=== PATIENT | male | born 1935 | race Caucasian/White ===

== ENCOUNTER 2019-06-14 11:09 | Inpatient (IN) | payer MEDICARE, OTHER ==
[~2019-06-14] VITALS: Ht 172.7 cm; Wt 96.8 kg
[2019-06-14] MEDS ORDERED: COZAAR50 MG PO (11:25)
[2019-06-14] MEDS ORDERED: NORVASC5 MG PO (11:25)
[2019-06-14] MEDS ORDERED: PAXIL10 MG PO (11:26)
[2019-06-14] MEDS ORDERED: FLOMAX0.4 MG PO (11:26)
[2019-06-14] MEDS ORDERED: LASIX20 MG PO (11:28)
[2019-06-14] MEDS ORDERED: POTASSIUM CHLO10 ME1 PO (11:29)
[2019-06-14] MEDS ORDERED: PACERONE100 MG PO (11:29)
[2019-06-14] MEDS ORDERED: TERAZOSIN HCL2 MG PO (11:31)
[2019-06-14] MEDS ORDERED: GLUCOTROL ER2.5 MG PO (11:32)
[2019-06-14] MEDS ORDERED: PROSCAR5 MG PO (11:32)
[2019-06-14] MEDS ORDERED: LISINOPRIL5 MG PO (11:32)
[2019-06-14 11:40] LABS: BASOPHILS 0.3 % (0-2); EOSINOPHILS 3.6 % (0-7); HEMOGLOBIN 11.1 g/dL (13.5-17.5); IMMATURE GRANULOCYTES 0.5 % (0-5); LYMPHOCYTES 19.3 % (15-50); MCH 30.8 pg (26.0-34.0); MCHC 33.6 g/dL (31.0-37.0); MCV 91.7 fL (80.0-100.0); MEAN PLATELET VOLUME 9.5 fL (7.4-10.4); MONOCYTES 7.2 % (2-11); NEUTROPHILS 69.1 % (40-80); PLATELET COUNT 167 10x3/uL (130-400); RDW 14.2 % (11.5-14.5); WBC 7.7 10x3/uL (4.8-10.8)
[2019-06-14 11:42] VITALS: BP 119/49
--- NOTE | 2019-06-14 11:43 | NUR ---
PT STATES "MY FEET ARE CRAMPING"
[2019-06-14 11:50] LABS: CALC OSMOLALITY 283 mosm/kg (275-300); CALCIUM 9.1 mg/dL (8.5-10.1); CARBON DIOXIDE 27.2 mmol/L (21.0-32.0); CHLORIDE - SERUM 105 mmol/L (98-107); CREATININE - SERUM 1.1 mg/dL (0.6-1.3); GLUCOSE 130 mg/dL (74-106); SODIUM 139 mmol/L (136-145); UREA NITROGEN 24 mg/dL (7-18); eGFR NON AFRICAN AMERICAN 68 mL/min (90-120)
[2019-06-14 12:08] LABS: ALBUMIN 3.4 g/dL (3.4-5.0); ALKALINE PHOSPHATASE 73 U/L (30-120); ALT (SGPT) 21 U/L (10-68); BILIRUBIN - TOTAL 0.49 mg/dL (0.2-1.3); CKMB 1.4 U/L (0.0-3.6); CREATINE KINASE 71 UL (21-232); PROTEIN - SERUM 6.8 g/dL (6.4-8.2); TROPONIN-I < 0.017 ng/mL (0.000-0.060)
[2019-06-14 12:59] VITALS: BP 112/47
--- NOTE | 2019-06-14 13:34 | NUR ---
PT TO CT
--- NOTE | 2019-06-14 13:50 | NUR ---
NS 0.9% 1000 ML INFUSING UPON TRANSFER @ 100 ML/H
--- NOTE | 2019-06-14 15:40 | NUR ---
RECEIVED PT TO ROOM 2113 VIA W/C AAOX4 RESP UNLabored SKIN W/D TELEMETRY APPLIED SR RATE 65 IV OF NS PATENT TO LAC VIA PUMP AT 100ML/HR SITE FREE OF REDNESS OR EDEMA WILL CONTINUE TO MONITOR AT BEDSIDE
[2019-06-14 17:41] VITALS: BP 126/65; BMI 30.1
[2019-06-14 18:22] LABS: BILIRUBIN NEGATIVE (NEGATIVE); GLUCOSE NEGATIVE (NEGATIVE); KETONE NEGATIVE (NEGATIVE); NITRITE NEGATIVE (NEGATIVE); UROBILINOGEN NORMAL (NORMAL)
[2019-06-14 20:00] VITALS: BP 114/55
[2019-06-15] VITALS: BP 132/52
[2019-06-15 04:00] VITALS: BP 127/49
[2019-06-15 05:58] LABS: BASOPHILS 0.1 % (0-2); HEMATOCRIT 32.3 % (42.0-54.0); HEMOGLOBIN 10.5 g/dL (13.5-17.5); IMMATURE GRANULOCYTES 0.4 % (0-5); LYMPHOCYTES 20.5 % (15-50); MCH 30.2 pg (26.0-34.0); MCHC 32.5 g/dL (31.0-37.0); MCV 92.8 fL (80.0-100.0); MEAN PLATELET VOLUME 9.9 fL (7.4-10.4); MONOCYTES 8.2 % (2-11); NEUTROPHILS 66.8 % (40-80); PLATELET COUNT 189 10x3/uL (130-400); RBC 3.48 10x6/uL (4.20-6.10); RDW 14.5 % (11.5-14.5)
[2019-06-15 06:13] LABS: ANION GAP 10.2 mmol/L (8-16); CALCIUM 8.9 mg/dL (8.5-10.1); CARBON DIOXIDE 27.2 mmol/L (21.0-32.0); CREATININE - SERUM 1.2 mg/dL (0.6-1.3); POTASSIUM - SERUM 4.4 mmol/L (3.5-5.1)
[2019-06-15 08:52] VITALS: BP 127/50
--- NOTE | 2019-06-15 10:11 | NUR ---
RECEIVED PT IN BED AAOX4 RESP UNLABORED SKIN W/D COLOR WNL DENIES ANY PAIN OR DISCOMFORT AT THIS TIME WILL CONT TO MONITOR
[2019-06-15 12:46] VITALS: BP 133/50
--- NOTE | 2019-06-15 14:12 | NUR ---
PT REFUSED SCDs
[2019-06-15 17:42] VITALS: BP 124/47
[2019-06-15 20:44] VITALS: BP 137/49
[2019-06-16 01:16] VITALS: BP 117/47
[2019-06-16 05:11] LABS: BASOPHILS 0.3 % (0-2); EOSINOPHILS 5.5 % (0-7); HEMOGLOBIN 11.7 g/dL (13.5-17.5); IMMATURE GRANULOCYTES 0.3 % (0-5); LYMPHOCYTES 25.9 % (15-50); MCH 30.6 pg (26.0-34.0); MCHC 32.5 g/dL (31.0-37.0); MCV 94.2 fL (80.0-100.0); MEAN PLATELET VOLUME 9.7 fL (7.4-10.4); MONOCYTES 8.8 % (2-11); NEUTROPHILS 59.2 % (40-80); PLATELET COUNT 197 10x3/uL (130-400); RBC 3.82 10x6/uL (4.20-6.10); RDW 14.7 % (11.5-14.5); WBC 9.4 10x3/uL (4.8-10.8)
[2019-06-16 05:35] LABS: ANION GAP 13.9 mmol/L (8-16); CALCIUM 9.4 mg/dL (8.5-10.1); CARBON DIOXIDE 27.8 mmol/L (21.0-32.0); CREATININE - SERUM 1.1 mg/dL (0.6-1.3)
[2019-06-16 05:40] LABS: POTASSIUM - SERUM 3.7 mmol/L (3.5-5.1)
[2019-06-16 05:45] VITALS: BP 147/45
--- NOTE | 2019-06-16 13:12 | NUR ---
IV AND TELEMETRY DCD. DC PLANS GIVEN. UNDERSTANDING VOICED. ESCORTED TO CAR BY W/C.
[2019-06-16 13:16] VITALS: Ht 172.7 cm; Wt 96.8 kg
== END 2019-06-16 13:13 | disposition home or self-care (01) | DRG 68 ==
LOC: D.ER 11:09 → D.M2 12:34 → OBSVTIME 12:51 → D.M2 06-15 14:59
PROVIDERS: Emergency Medicine; ADMIT Family Medicine; ATTEND Family Medicine
DX: I65.21 Occlusion and stenosis of right carotid artery (principal); I71.4 Abdominal aortic aneurysm, without rupture; R00.1 Bradycardia, unspecified; E11.9 Type 2 diabetes mellitus without complications; I10 Essential (primary) hypertension

== ENCOUNTER → 2019-06-25 10:28 | Outpatient (CLI) | payer MEDICARE, OTHER ==
[2019-06-16 13:16] VITALS: BMI 30.1
[~2019-06-25 10:28] MED LIST: COZAAR50 MG PO; FLOMAX0.4 MG PO; GLUCOTROL ER2.5 MG PO; LASIX20 MG PO; LISINOPRIL5 MG PO; NORVASC5 MG PO; PACERONE100 MG PO; PAXIL10 MG PO; POTASSIUM CHLO10 ME1 PO; PROSCAR5 MG PO; TERAZOSIN HCL2 MG PO
== END | disposition home or self-care (01) ==
LOC: D.CT 10:28
PROVIDERS: ATTEND Internal Medicine Cardiovascular Disease
DX: I65.23 Occlusion and stenosis of bilateral carotid arteries (principal)

== ENCOUNTER 2019-07-27 07:41 | Observation (INO) | payer MEDICARE, OTHER ==
[2019-07-25 15:36] LABS: HEMATOCRIT 36.4 % (42.0-54.0); HEMOGLOBIN 11.9 g/dL (13.5-17.5); MCH 30.7 pg (26.0-34.0); MCHC 32.7 g/dL (31.0-37.0); MCV 93.8 fL (80.0-100.0); MEAN PLATELET VOLUME 9.5 fL (7.4-10.4); RBC 3.88 10x6/uL (4.20-6.10); WBC 6.3 10x3/uL (4.8-10.8)
[2019-07-25 15:52] LABS: APTT 26.2 SECONDS (22.8-39.4); INR 1.03 (0.85-1.17); PROTIME 13.4 SECONDS (11.6-15.0)
[2019-07-25 15:53] LABS: ANION GAP 12.3 mmol/L (8-16); CALCIUM 8.7 mg/dL (8.5-10.1); CARBON DIOXIDE 28.4 mmol/L (21.0-32.0); CREATININE - SERUM 1.1 mg/dL (0.6-1.3); POTASSIUM - SERUM 3.7 mmol/L (3.5-5.1)
[~2019-07-27] VITALS: Ht 172.7 cm; Wt 83.6 kg
[2019-07-27] VITALS (16 sets, daily range): BP systolic 100–134; BP diastolic 42–85; Ht 172.7 cm; Wt 83.6 kg
--- NOTE | ~2019-07-27 | OP ---
PATIENT NAME: SPIKE KAYE MEDICAL RECORD: [id number] :37 [facility]: SURGEON: BENTLEY ANGULO MD DATE OF OPERATION: 07/27/2019 SURGEON: Bentley Angulo MD ANESTHESIA: General, Dr. Phillips. OPERATION PERFORMED: Insertion of dual chamber pacing system. PREOPERATIVE DIAGNOSIS: Sick sinus syndrome. POSTOPERATIVE DIAGNOSIS: Sick sinus syndrome. INDICATION FOR OPERATION: Syncope, profound bradycardia, and sick sinus syndrome. FINDINGS OF THE OPERATION: The pulse generator Medtronic model #W1DR01, serial number [id number]. ATRIAL LEAD: Medtronic model number 4574-45, serial number [id number]. Ventricular lead Medtronic model number 4074-52, serial number [id number]. LEAD ANALYSIS: Atrial lead threshold 0.5 volts, current lead threshold 0.9 milliamps, resistance 625 ohms. P-wave 1.9, slew rate 1.2. Ventricular lead threshold 0.2 volts, current threshold 0.2 milliamps, resistance 1140, R-wave 4.9, slew rate 4.9. ESTIMATED BLOOD LOSS: Less than 5 cc. DESCRIPTION OF PROCEDURE: After informed consent, adequate preoperative medication evaluation, the patient was brought to the operating room, placed on table in supine position. After induction of general endotracheal anesthesia and application of appropriate monitoring devices, left chest and neck were prepped and draped in a sterile field, utilizing Betadine scrub, alcohol, and Betadine solution. A Betadine-impregnated drape was also used, 1% lidocaine was infiltrated in the left subclavicular space. Incision was made. Dissection carried down the fascia. Hemostasis maintained with electrocautery. A pacemaker pocket was formed. Subclavian vein was cannulated with the introducers, leads placed in the heart. The above electrophysiologic study was done. Leads were then secured. Leads were connected to pulse generator and pacemaker placed in the pocket. Pacemaker fired, captured and sensed appropriately. Pocket was irrigated. Instrument count and sponge count were correct times 2. Pocket was closed in layers utilizing 3-0 Vicryl on deep subcutaneous tissue, 3-0 Vicryl on superficial subcutaneous tissue, and skin approximated with 5-0 subcuticular Monocryl. Sterile dressings were applied. The patient tolerated the procedure well and was transferred to the CV ICU in satisfactory condition. TRANSINT:[id number] Voice Confirmation ID: [id number] DOCUMENT ID: [id number] OPERATIVE REPORT [id number] SPIKE KAYE EDWARD MD CC: [id number] DICTATION DATE: 07/27/19 132 COOK MESS: 07/27/19 211 [facility] [address] [place] [address]
[~2019-07-27 07:41] MED LIST changes: +BAYER CHEWABLE81 MG PO; +DONEPEZIL HCL5 MG PO
[2019-07-27] MEDS ORDERED: GLUCOSAMINE HC500 MG PO (08:16)
--- NOTE | 2019-07-27 13:43 | NUR ---
1325: TO CV 02 VIA BED FROM OR. CONNECTED TO MONITOR AND VS AND ASSESSMENT COMPLETE.
--- NOTE | 2019-07-27 14:41 | NUR ---
1350-SPOKE WITH PT AND REGARDING L ARM SLING AND MOVEMENT RESTRICTIONS REQUIRED TO PROTECT PACEMAKER PLACEMENT 1430-BELONGINGS BROUGHT TO BEDSIDE
--- NOTE | 2019-07-27 15:55 | NUR ---
1300-DR ARRIAZA AT BEDSIDE-SPOKE WITH DR LEVINE -ORDER GIVEN TO EXTUBATE TOLERATED WELL -ICE CHIPS GIVEN-NO DIFFICUTY- 1430-BELONGINGS BROUGHT TO BEDSIDE
--- NOTE | 2019-07-27 19:00 | NUR ---
PT ASSESSMENT COMPLETED AT THIS TIME, NO CHANGES NOTED FROM NURSE REPORT, PT RESTING WITH EYES CLOSED, AWAKES TO NAME, RESP EVNE AND NON-LABORED, VSS, WILL MONITOR FOR FOR CHANGES
--- NOTE | 2019-07-27 21:00 | NUR ---
PT ASSISTED UP TO THE BATHROOM WITH STAND BY ASSIST, NO DISTRESS OR COMPLAINTS NOTED AT THIS TIME
--- NOTE | 2019-07-27 23:00 | NUR ---
PT REASSESSMENT COMPLETED AT THIS TIME, NO CHANGES NOTED FROM PREVIOUS EXAM, VSS, WILL MONITOR FOR CHANGES
[2019-07-28] VITALS (11 sets, daily range): BP systolic 113–135; BP diastolic 49–68
--- NOTE | 2019-07-28 01:00 | NUR ---
PT RESTING WITH EYES CLOSED RESP EVEN AND UNLABORED, VSS,WILL MONITOR FOR CHANGES
--- NOTE | 2019-07-28 02:50 | NUR ---
PT ASSISSTED UP TO BATHROOM WITH STAND BY ASSIST, NO DISTRESS NOTED, VSS, WILL MONITOR FOR CHANGES
--- NOTE | 2019-07-28 05:05 | NUR ---
PT ASSISTED UP TO THE BATHROOM AT THIS TIME WITH STAND BY ASSISST, NO DISTRESS NOTED, VSS, WILL MONITOR FOR CHANGES
--- NOTE | 2019-07-28 06:29 | NUR ---
PT CHG BATH AND ASSISTED UP TO BEDSIDE CHAIR
--- NOTE | 2019-07-28 07:00 | NUR ---
AWAKE AND ALERT SKIN WARM AND DRY. UP IN CHAIR AT BEDSIDE. NO DISTRESS. LEFT ARM IN SLIGHT. BILATERAL HAND FINISH PHOTOGRAPHER EQUAL AND STRONG. RIGHT INNER WRIST IV SALINE LOCK. SWOLLEN NO REDNESS NOTED. DRESSING LEFT SHOULDER DRY AND INTACT. TALKATIVE AND FRIENDLY.
--- NOTE | 2019-07-28 08:00 | NUR ---
BREAKFAST SERVED ATE 100%. DENIES PAIN. REMINDED OF NO LIFTING OF LEFT ARM NO LIFTING ARM ABOVE SHOULDER VERBALIZED UNDERSTANDING.
--- NOTE | 2019-07-28 09:00 | NUR ---
UP TO BATHROOM. AMBULATES WELL. GAIT STEADY. NEEDS ASSISTANCES GETTING UP DUE TO LIMITED USE OF LEFT ARM. INSTRUCTED TO LEAN FORWARD AND USE LEGS.
--- NOTE | 2019-07-28 10:00 | NUR ---
IV STARTED IN RIGHT HAND FOR ABT X 1 STICK WITH 22 GAUGE. PATIENT TOLERATED WELL.
--- NOTE | 2019-07-28 11:30 | NUR ---
HERE. DISCHARGE ORDERS RECEIVED. PATIENT ATE 100% OF LUNCH TRAY. IV DC'D. ASSIST WITH DRESSING. GIVEN INSTRUCTIONS TO MEET US AT ER EXIT.
--- NOTE | 2019-07-28 12:26 | NUR ---
DISCHARGE HOME PER WHEEL CHAIR WITH
== END 2019-07-28 13:29 | disposition home or self-care (01) ==
LOC: D.OPS 07:41 → D.PAN 11:00 → D.CVICU 12:56 → D.OPS 12:57 → OBSVTIME 12:57 → D.CVICU 12:57 → D.OPS 13:00 → D.CVICU 07-28 13:29
PROVIDERS: ADMIT Internal Medicine Cardiovascular Disease; ATTEND Internal Medicine Cardiovascular Disease
DX: I49.5 Sick sinus syndrome (principal)

== ENCOUNTER → 2019-08-15 14:27 | Outpatient (CLI) | payer MEDICARE, OTHER ==
[2019-07-27 13:29] VITALS: BMI 28.1
[~2019-08-15 14:27] MED LIST changes: +GLUCOSAMINE HC500 MG PO
== END | disposition home or self-care (01) ==
LOC: D.RAD 14:27
PROVIDERS: ATTEND Internal Medicine Cardiovascular Disease
DX: Z95.0 Presence of cardiac pacemaker (principal)

== ENCOUNTER → 2019-12-05 13:28 | Outpatient (CLI) | payer MEDICARE, OTHER ==
[2019-07-27 13:29] VITALS: BMI 28.1
== END | disposition home or self-care (01) ==
LOC: D.HCCECHO 13:28
PROVIDERS: ATTEND Internal Medicine Cardiovascular Disease
DX: I25.10 Atherosclerotic heart disease of native coronary artery without angina pectoris (principal)

== ENCOUNTER → 2020-01-21 09:26 | Outpatient (CLI) | payer MEDICARE, OTHER ==
[2019-07-27 13:29] VITALS: BMI 28.1
== END | disposition home or self-care (01) ==
LOC: D.US 09:26
PROVIDERS: ATTEND Internal Medicine Cardiovascular Disease
DX: I65.23 Occlusion and stenosis of bilateral carotid arteries (principal)

== ENCOUNTER 2020-08-07 18:39 | Emergency (ER) | payer MEDICARE, OTHER ==
[~2020-08-07] VITALS: Ht 172.7 cm; Wt 113.6 kg
[2020-08-07 18:41] VITALS: Ht 172.7 cm; Wt 113.6 kg
[2020-08-07 19:01] LABS: BASOPHILS 0.3 % (0-2); EOSINOPHILS 0.6 % (0-7); HEMATOCRIT 36.1 % (42.0-54.0); HEMOGLOBIN 12.2 g/dL (13.5-17.5); IMMATURE GRANULOCYTES 0.6 % (0-5); LYMPHOCYTE ABS# 1.21 10x3/uL (1.32-3.57); LYMPHOCYTES 16.9 % (15-50); MCH 30.2 pg (26.0-34.0); MCHC 33.8 g/dL (31.0-37.0); MCV 89.4 fL (80.0-100.0); MEAN PLATELET VOLUME 9.6 fL (7.4-10.4); MONOCYTES 10.6 % (2-11); NEUTROPHIL ABS# 5.09 10x3/uL (1.78-5.38); PLATELET COUNT 187 10x3/uL (130-400); RBC 4.04 10x6/uL (4.20-6.10); RDW 13.4 % (11.5-14.5); WBC 7.2 10x3/uL (4.8-10.8)
[2020-08-07 19:13] LABS: ANION GAP 12.4 mmol/L (8-16); CALCIUM 8.9 mg/dL (8.5-10.1); CARBON DIOXIDE 27.7 mmol/L (21.0-32.0); CREATININE - SERUM 1.1 mg/dL (0.6-1.3); POTASSIUM - SERUM 4.1 mmol/L (3.5-5.1)
[2020-08-07 19:18] LABS: ALBUMIN 3.3 g/dL (3.4-5.0); BILIRUBIN - TOTAL 0.55 mg/dL (0.2-1.3); PROTEIN - SERUM 7.3 g/dL (6.4-8.2)
[2020-08-07 20:45] LABS: BACTERIA MANY HPF (NONE SEEN); BILIRUBIN NEGATIVE (NEGATIVE); KETONE NEGATIVE (NEGATIVE); NITRITE NEGATIVE (NEGATIVE); SQUAMOUS EPITHELIAL 0-5 HPF (0-4); UROBILINOGEN NORMAL mg/dL (< 2)
[2020-08-07] MEDS ORDERED: OMNICEF300 MG PO (22:16)
[2020-08-08 02:20] VITALS: BP 152/63
== END 2020-08-07 23:50 | disposition home or self-care (01) ==
LOC: D.ER 18:39
PROVIDERS: Emergency Medicine
DX: N39.0 Urinary tract infection, site not specified (principal); R41.82 Altered mental status, unspecified; E86.0 Dehydration; E11.9 Type 2 diabetes mellitus without complications; Z79.84 Long term (current) use of oral hypoglycemic drugs

== ENCOUNTER 2020-08-16 19:17 | Inpatient (IN) | payer MEDICARE, OTHER ==
[~2020-08-16] VITALS: Ht 172.7 cm; Wt 90.7 kg
[~2020-08-16 19:17] MED LIST changes: +OMNICEF300 MG PO
[2020-08-16] MEDS ORDERED: MACRODANTIN100 MG PO (19:24)
--- NOTE | 2020-08-16 19:32 | NUR ---
CODE SEPSIS INITIATED.
[2020-08-16 19:58] LABS: BASOPHILS 0.5 % (0-2); HEMATOCRIT 41.6 % (42.0-54.0); HEMOGLOBIN 13.5 g/dL (13.5-17.5); IMMATURE GRANULOCYTES 1.7 % (0-5); LYMPHOCYTE ABS# 1.52 10x3/uL (1.32-3.57); LYMPHOCYTES 11.5 % (15-50); MCH 29.8 pg (26.0-34.0); MCHC 32.5 g/dL (31.0-37.0); MCV 91.8 fL (80.0-100.0); MEAN PLATELET VOLUME 9.7 fL (7.4-10.4); MONOCYTES 8.3 % (2-11); NEUTROPHIL ABS# 10.04 10x3/uL (1.78-5.38); PLATELET COUNT 164 10x3/uL (130-400); RBC 4.53 10x6/uL (4.20-6.10); RDW 13.7 % (11.5-14.5); WBC 13.2 10x3/uL (4.8-10.8)
--- NOTE | 2020-08-16 20:01 | NUR ---
CODE SEPSIS CANCELLED PER DR. OWEN.
[2020-08-16 20:03] LABS: CALCIUM 9.5 mg/dL (8.5-10.1); CARBON DIOXIDE 29.6 mmol/L (21.0-32.0); CREATININE - SERUM 1.4 mg/dL (0.6-1.3); POTASSIUM - SERUM 4.6 mmol/L (3.5-5.1)
[2020-08-16 20:06] LABS: APTT 27.5 SECONDS (22.8-39.4); INR 1.38 (0.85-1.17); PROTIME 15.8 SECONDS (11.6-15.0)
[2020-08-16 20:07] VITALS: BP 129/72
[2020-08-16 20:18] LABS: ALBUMIN 2.7 g/dL (3.4-5.0); C-REACTIVE PROTEIN 41.4 mg/dL (0.0-0.9); MAGNESIUM - SERUM 2.6 mg/dL (1.8-2.4); PROTEIN - SERUM 7.7 g/dL (6.4-8.2); THYROID STIMULATING HORMONE 1.96 uIU/mL (0.36-3.74)
[2020-08-16 20:34] LABS: BACTERIA MODERATE HPF (NONE SEEN); BILIRUBIN NEGATIVE (NEGATIVE); KETONE NEGATIVE (NEGATIVE); NITRITE NEGATIVE (NEGATIVE); SQUAMOUS EPITHELIAL 0-5 HPF (0-4); UROBILINOGEN NORMAL mg/dL (< 2); WHITE CELLS - URINE NONE SEEN HPF (0-1)
[2020-08-16 22:49] VITALS: BP 132/70
[2020-08-17 00:10] VITALS: BP 103/51
--- NOTE | 2020-08-17 00:57 | NUR ---
PT ARRIVED VIA STRETCHER, ESCORTED BY ER NURSE. TRANSFERRED TO BED USING SLIDEBOARD AND X5 PERSON ASSIST. PT HAS STAGE 2 SORES ON BUTTOCKS, ESPICIALLY INNER RIGHT BUTTOCK CHEEK. CLEANSED AREA WITH ANTIBACTERIAL WOUND HELICOPTER DISPATCHER, PATTED DRY WITH STERILE 4X4'S, AND COVERED AREA WITH LARGE HEART MEPILEX DRESSING. RE-STARTED IV FLUIDS PER ORDER: NS @ 125 ML/HR TO IV IN RIGHT AC. PLACED AUREA BED ALARM UNDER PT. CHANGED HIM INTO YELLOW GOWN AND GRIPPER SOCKS. APPLIED SCD'S TO RLE. URINAL WITHIN REACH, AND BEDPADS UNDER PT. SIDE RAILS UP X3 FOR SAFETY.
[2020-08-17 01:35] VITALS: BP 132/78; BMI 30.4
--- NOTE | 2020-08-17 01:52 | NUR ---
ADMISSION ASSESSMENT AND HISTORY COMPLETE.
--- NOTE | 2020-08-17 06:22 | NUR ---
PT HAS NOT VOIDED SINCE COMING TO FLOOR...BLADDER SCAN RESULTS ARE >999ML. RECEIVED ORDER TO PLACE RENTERIA CATHETER. PLACED 16F RENTERIA CATHETER WITH RETURN OF 1050 ML DARK URINE....CLAMPED EVERY 300 MLS.
[2020-08-17 07:00] VITALS: BP 156/87
--- NOTE | 2020-08-17 15:19 | NUR ---
I have reviewed this patient and I concur with the Shift Assessment completed by the Licensed Practical Nurse today this shift.
[2020-08-17 15:29] VITALS: BP 137/71
--- NOTE | 2020-08-17 18:29 | NUR ---
PATIENT CHANGED TO REG DIET THIS MORNING WITH ENSURE ADDED TO ALL MEALS, PER FAMILY PATIENT DID NOT GET A TRAY, PER SPOUSE PATIENT IS NOT EATING AND CLAMPS HIS MOUTH WHEN SHE TRIES TO FEED HIM, MULTIPLE FAMILY MEMBERS IN ROOM AND HALLWAY, ASKED EVERYONE TO PLEASE PUT ON MASK AND INFORMED OF 1 VISITOR PER PT AT A TIME. SPOKE TO KADIE IN DIETARY INFORMED OF TRAY NEEDED, RENTERIA CARE PERFORMED CONTINUE WITH PLAN OF CARE
--- NOTE | 2020-08-17 18:33 | NUR ---
PATIENT FAMILY MEMBNER STATED THERE ARE TO BE 2 BAGS OF FLUIDS HANGING AT A TIME, EXPLAINED THAT HE ONLY HAS SALINE RUNNING RIGHT NOW AND NO ORDERS FOR ANYTHING ELSE, PATIENT FAMILY STATED SHE SAW 2 BAGS. FAMILY THEN ASKED WHERE PATIENT'S FOOD IS AGAINM STATED I JUST CALLED DIETARY AND INFORMED THEM PATIENT DID NOT GET TRAY, FAMILY MEMBERS STATE THEY ARE NOT HAPPY WITH MY CARE, EXPLAINED THAT PATIENT WAS PLACED ON RREG DIET, WHEN I NOTICED PATIENT WAS NOT EATING BUT WOULD DRINK I ORFERED ENSURE WITH HIS MEALS SO HE CAN GET HIS NUTRIENTS AND I SAW IN NOTES FROM DR BRUNNER THAT PHYSICAL THERAPY WAS ORDERED WELL, SUBMITTED ORDER FOR OT, ST AND PT PER DR'S NOTES. CONTINUE WITH PLAN OF CARE
[2020-08-17 20:42] VITALS: BP 144/69
--- NOTE | 2020-08-18 03:20 | NUR ---
patient's family wanted patient to have something for sleep, i notified Dr. Haile and he ordered him temazepam 15 mg po at HS PRN for insomnia. it appeared to work well, he has been resting in bed with his eyes closed.
[2020-08-18 06:41] LABS: ANION GAP 11.3 mmol/L (8-16); CALCIUM 8.3 mg/dL (8.5-10.1); CARBON DIOXIDE 25.5 mmol/L (21.0-32.0); CREATININE - SERUM 1.1 mg/dL (0.6-1.3)
[2020-08-18 06:53] LABS: BASOPHILS 0.2 % (0-2); EOSINOPHILS 3.1 % (0-7); HEMATOCRIT 34.1 % (42.0-54.0); HEMOGLOBIN 10.9 g/dL (13.5-17.5); IMMATURE GRANULOCYTES 2.4 % (0-5); LYMPHOCYTE ABS# 1.67 10x3/uL (1.32-3.57); LYMPHOCYTES 13.6 % (15-50); MCH 29.5 pg (26.0-34.0); MCV 92.2 fL (80.0-100.0); MEAN PLATELET VOLUME 10.3 fL (7.4-10.4); MONOCYTES 8.3 % (2-11); NEUTROPHIL ABS# 8.91 10x3/uL (1.78-5.38); NEUTROPHILS 72.4 % (40-80); PLATELET COUNT 157 10x3/uL (130-400); POTASSIUM - SERUM 3.8 mmol/L (3.5-5.1); RDW 13.8 % (11.5-14.5); WBC 12.3 10x3/uL (4.8-10.8)
[2020-08-18 10:18] VITALS: BP 126/60
--- NOTE | 2020-08-18 13:01 | NUR ---
PATIENT SITTING UP IN BED WITH SPOUSE AT BEDSIDE, PATIENT ATE 75% OF BREAKFAST WELL LUNCH TODAY AND WAS ABLE TO FEED SELF. NO NEEDS AT THIS TIME. CONTINUE WITH PLANOF CARE
[2020-08-18 14:00] VITALS: BP 122/59
[2020-08-18 14:12] VITALS: Ht 172.7 cm; Wt 90.7 kg
--- NOTE | 2020-08-18 15:01 | NUR ---
I have reviewed this patient and I concur with the Shift Assessment completed by the Licensed Practical Nurse today this shift.
--- NOTE | 2020-08-18 16:59 | NUR ---
PATIENT BLOOD SUGAR IS 176, PATIENT IS NOT ON A SLIDING SCALE PER DAUGHTER PATIENT TAKES PO MEDS AT HOME TO CONTROL BLOOD SUGAR BUT IT IS NOT METFORMIN, WILL SPEAK TO DR WHEN HE ARRIVES IN REGARDS TO SLIDING SCALE OR PO MEDS FOR BLOOD SUGAR TREATMENT. NO OTHER NEEDS AT THIS TIME. CONTINUE WITH PLAN OF CARE
[2020-08-18 17:54] VITALS: BP 167/62
[2020-08-18 20:00] VITALS: BP 135/67
[2020-08-19] VITALS: BP 151/64
--- NOTE | 2020-08-19 03:51 | NUR ---
PATIENT CONTINUES TO BE CONFUSED, HE DID REST WELL TONIGHT, BUT IS AWAKE AND WANTING TO GO HOME, I HAVE VERBALLY REDIRECTED HIM AND HE HAS LEFT HIS CLOTHES ON. HE IS CURRENTLY RESTING IN BED WATCHING THE NEWS.
[2020-08-19 04:00] VITALS: BP 131/62
[2020-08-19 10:02] VITALS: BP 152/59
--- NOTE | 2020-08-19 10:49 | NUR ---
PATIENT CONTINUES TO LEAN TO LEFT SIDE, DAUGHTER IS VERY CONCERNED, ASKED ME TO CALL DR MITCHELL. PATIENT WAS ABLE TO FEED HIMSELF BREAKFAST AND IS PLEASANTLY CONFUSED STILL. CONTINUE WITH PLAN OF CARE
--- NOTE | 2020-08-19 14:39 | NUR ---
I have reviewed this patient and I concur with the Shift Assessment completed by the Licensed Practical Nurse today this shift.
[2020-08-19 14:48] VITALS: BP 105/68
--- NOTE | 2020-08-19 15:58 | NUR ---
OT NOTE: PT REQUIRED MAX A FOR SUPINE TO SIT. PT REQUIRED MAX A FOR STATIC SITTING WITH CORRECT POSTURE. PT CONTINUES TO EXHIBIT A LEFT LATERAL LEAN. PT COMPLETED POSITIONING IN BED WITH MAX A. [phone] NORA K[place]BY C[place]
[2020-08-19 17:21] VITALS: BP 140/62
[2020-08-19 20:00] VITALS: BP 128/71
--- NOTE | 2020-08-19 20:00 | NUR ---
PT SITTING UP IN BED WITHOUT DISTRESS, ORIENTED TO SELF. FAMILY AT BEDSIDE. FLUIDS DC'D AT THIS TIME. IV RIGHT HAND SL. RENTERIA IN PLACE. DENIES NEEDS. CL IN REACH, BED ALARM ON.
[2020-08-20] VITALS: BP 142/65
--- NOTE | 2020-08-20 01:30 | NUR ---
PT PULLED IV OUT OF RIGHT HAND WITH CATH INTACT. BLOOD ALL OVER SHEETS AND GOWN. PT GIVEN BED BATH AT THIS TIME. LINENS CHANGED. RENTERIA CARE DONE AT THIS TIME. CL IN REACH, BED ALARM ON.
[2020-08-20 04:00] VITALS: BP 150/65
[2020-08-20 06:06] LABS: HEMATOCRIT 33.1 % (42.0-54.0); MCH 29.7 pg (26.0-34.0); MCHC 33.1 g/dL (31.0-37.0); MEAN PLATELET VOLUME 8.1 fL (7.4-10.4)
[2020-08-20 06:15] LABS: CALC OSMOLALITY 280 mosm/kg (275-300); CARBON DIOXIDE 25.3 mmol/L (21.0-32.0); CHLORIDE - SERUM 106 mmol/L (98-107); GLUCOSE 139 mg/dL (74-106); POTASSIUM - SERUM 3.6 mmol/L (3.5-5.1); SODIUM 139 mmol/L (136-145); WBC 8.5 10x3/uL (4.8-10.8); eGFR NON AFRICAN AMERICAN 76 mL/min (90-120)
[2020-08-20 06:16] LABS: MCV 89.6 fL (80.0-100.0); PLATELET COUNT 230 10x3/uL (130-400)
[2020-08-20 06:17] LABS: UREA NITROGEN 16 mg/dL (7-18)
--- NOTE | 2020-08-20 08:02 | NUR ---
ALERT AND ORIENTED TO SELF. ASSESSMENT COMPLETE. BED LOW. BED ALARM ON. CALL WEINER AND PERSONAL ITEMS IN REACH. WILL CONTINUE TO MONITOR.
--- NOTE | 2020-08-20 08:33 | MORECARE ---
CASE MANAGEMENT DISCHARGE SUMMARY PATIENT: SPIKE KAYE UNIT: [id number] ADM DATE: 08/16/20 AGE: 84 : 37 SEX: M ROOM/BED: D.2218 AUTHOR: FINA,DOC PHYSICIAN: REFERRING PHYSICIAN: JOJO MITCHELL MD DATE OF SERVICE: 08/20/20 Case Management Discharge Planning Summary COMMENTS ENTERED DATE: 08/20/20 8:22 CT COMMENT TYPE: Discharge Planning REVIEWER: Elidia Hanna late entry 08/19/20 @ 12:30 CM met with patient, and daughter to complete initial dc planning assessment. CM educated patient on the CM role and verbal consent given by patient to complete assessment. Patient lives at home with his where about 2 1/2 weeks ago he was working in his garden. CM discussed availability of home health, rehab services, and medical equipment. At discharge patient plans to go to [facility] inpatient rehab prior to returning home and feels this is a safe discharge. He has a walker at home and a wheelchair, but does not use the wheelchair. He is current with [facility]. He is a patient of Dr Marin and uses the [facility] [employer]. IMM served and BHUMI also signed. Patient denied known discharge needs at this time. CM will continue to follow and will assist as needed with dc plans/needs. DCP REVIEW SUMMARY ANTICIPATED D/C DATE: EXPECTED LOS : CASE STATUS: DCP Initiated INITIAL REVIEW: 08/17/2020 INITIAL REVIEWER: Elidia Hanna FINAL DISCHARGE DISPOSITION: : FINAL REVIEWER: FINAL REVIEW DATE: DCP Focus Questions & Answers QUESTION: ANSWER : PATIENT: SPIKE KAYE ENCOUNTER: [id number] MEDICAL RECORD#: [id number] ADMISSION DATE: 08/16/2020 DISCHARGE DATE: ATTENDING MD: JOJO JASSO : AGE: 84 MARITAL STATUS: M DC PLAN ID: [id number] FACILITY: [facility] PRINTED ON: 08/20/20 8:33 CT All edits/amendments must be made on the electronic document DICTATION DATE: 08/20/20832 ANALYTICS ANALYST: KELLIE 08/20/20832 RPT#: [id number] DC DATE: STATUS: ADM IN [facility] [address] [place] [address] END OF REPORT
[2020-08-20 08:39] VITALS: BP 144/72
--- NOTE | 2020-08-20 09:59 | NUR ---
RESTING IN BED. DAUGHTER AT BEDSIDE.
--- NOTE | 2020-08-20 11:09 | NUR ---
PATIENT'S INFORMED THAT ONLY ONE VISITOR ALLOWED AT A TIME.
[2020-08-20 12:34] VITALS: BP 110/59
[2020-08-20] MEDS ORDERED: Levaquin PO (13:43)
[2020-08-20 14:08] LABS: ANISOCYTOSIS OCC; EOSINOPHILS 4 % (0-7); LYMPHOCYTES 18 % (15-50); MONOCYTES 10 % (2-11); NEUTROPHILS 63 % (40-80); PLATELET ESTIMATE NORMAL
--- NOTE | 2020-08-20 14:43 | NUR ---
ATTEMPTED TO CALL REPORT TO [facility]. STATES NURSE IS BUSY AND WILL CALL BACK.
--- NOTE | 2020-08-20 15:31 | NUR ---
OT NOTE: PT MORE LETHARGIC TODAY.. MORE DIFFICULT TO KEEP AWAKE DURING THERAPY. REQUIRED ASSIST X 2 FOR BED MOB.. PTS SITTING BALANCE WAS SLIGHTLY BETTER, HE WAS NOT LEANING TO THE LEFT IN PREVIOUS DAYS. ATTEMPTED SIT TO STAND WITH WALKER AND MAX ASSIST X 2 X 3 TRIALS.. PT EXTREMELEY WEAK AND DOES NOT TOLERATE MUCH ACT. UNABLE TO TRANSFER PT WITHOUT USE OF RODRICK LIFT.. PRACTICED BED MOB WITH MAX ASSIST X 2.. PT MORE RESISTIVE TO ROLLING TO L SIDE. POSITIONED PT ON R SIDE TO PREVENT MORE PRESSURE AREAS.. REPORTS THAT HE ALWAYS WANTS TO LIE ON HIS BACK. ANNETTE ESPINOZA, OTR/L [phone]
--- NOTE | 2020-08-20 15:33 | NUR ---
ATTEMPTED TO CALL REPORT FOR SECOND TIME. RN STATES IS "BUSY RIGHT NOW." SECOND RN STATES IS GETTING REPORT ON ANOTHER PATIENT SO WILL CALL BACK. NOTIFIED SECOND RN THAT RN WAS SUPPOSED TO CALL BACK 45 MINUTES AGO. STATES "WELL SHE GOT BUSY." PHONE NUMBER GIVEN FOR CALL BACK. AGAIN.
--- NOTE | 2020-08-20 15:33 | MORECARE ---
CASE MANAGEMENT DISCHARGE SUMMARY PATIENT: SPIKE KAYE UNIT: [id number] ADM DATE: 08/16/20 AGE: 84 : 37 SEX: M ROOM/BED: D.2218 AUTHOR: FINA,DOC PHYSICIAN: REFERRING PHYSICIAN: JOJO MITCHELL MD DATE OF SERVICE: 08/20/20 Case Management Discharge Planning Summary COMMENTS ENTERED DATE: 08/20/20 15:30 CT COMMENT TYPE: Discharge Planning REVIEWER: Elidia Hanna patient will be discharging to [facility] today He will need to transport via EMS ENTERED DATE: 08/20/20 8:22 CT COMMENT TYPE: Discharge Planning REVIEWER: Elidia Hanna late entry 08/19/20 @ 12:30 CM met with patient, and daughter to complete initial dc planning assessment. CM educated patient on the CM role and verbal consent given by patient to complete assessment. Patient lives at home with his where about 2 1/2 weeks ago he was working in his garden. CM discussed availability of home health, rehab services, and medical equipment. At discharge patient plans to go to [facility] inpatient rehab prior to returning home and feels this is a safe discharge. He has a walker at home and a wheelchair, but does not use the wheelchair. He is current with [facility] . He is a patient of Dr Marin and uses the [facility] by [facility]. IMM served and BHUMI also signed. Patient denied known discharge needs at this time. CM will continue to follow and will assist as needed with dc plans/needs. DCP REVIEW SUMMARY ANTICIPATED D/C DATE: EXPECTED LOS : CASE STATUS: DCP Initiated INITIAL REVIEW: 08/17/2020 INITIAL REVIEWER: Elidia Hanna FINAL DISCHARGE DISPOSITION: : FINAL REVIEWER: FINAL REVIEW DATE: DCP Focus Questions & Answers QUESTION: ANSWER : PATIENT: SPIKE KAYE ENCOUNTER: [id number] MEDICAL RECORD#: [id number] ADMISSION DATE: 08/16/2020 DISCHARGE DATE: ATTENDING MD: JOJO JASSO : AGE: 84 MARITAL STATUS: M DC PLAN ID: [id number] FACILITY: [facility] PRINTED ON: 08/20/20 15:33 CT All edits/amendments must be made on the electronic document DICTATION DATE: 08/20/201532 COPYIST: KELLIE 08/20/201532 RPT#: [id number] DC DATE: STATUS: ADM IN [facility] [address] [place] [address] END OF REPORT
--- NOTE | 2020-08-20 16:42 | NUR ---
ATTEMPTED TO CALL REPORT FOR THIRD TIME. SPOKE WITH RIOS JOHNSON. ELIZABETH ASKED FOR CALL BACK NUMBER. MADE ELIZABETH AWARE THAT I HAVE BEEN TRYING TO CALL REPORT SINCE 1444 AND WOULD RATHER NOT JUST PROVIDE CALL BACK BUT NEED TO EITHER TALK TO RN TAKING PATIENT OR CHARGE NURSE. ELIZABETH, CHARGE NURSE, STATES "I AM THE CHARGE NURSE. I NEED THE CALL BACK NUMBER TO GIVE TO THE NURSE. I UNDERSTAND. THAT USED TO PISS ME OFF TOO." AND HUNG UP ON ME.
--- NOTE | 2020-08-20 16:46 | NUR ---
CHARGE NURSE, FELIPA CALLED AND SPOKE WITH ELIZABETH CHARGE NURSE AT [facility]. FELIPA MADE ELIZABETH AWARE AGAIN THAT WE HAVE BEEN TRYING TO CALL REPORT FOR OVER TWO HOURS AND NEED TO GIVE REPORT. ELIZABETH, AGAIN, STATES THAT WILL HAVE NURSE CALL BACK. FELIPA MADE ELIZABETH AWARE THAT NURSE NEEDS TO CALL BACK WITHIN A REASONABLE TIME, NOT 45 MINUTES FROM NOW. ELIZABETH STATES NURSE WILL CALL BACK QUICKLY.
--- NOTE | 2020-08-20 16:50 | NUR ---
CASE MANAGEMENT, ANNETTE, SPOKE WITH NIR BONE AT [facility] ABOUT NO ONE BEING WILLING TO TAKE REPORT. NIR BONE STATES IF NO ONE TAKES REPORT NEXT CALL, CALL NIR BONE AND SHE WILL TAKE REPORT.
--- NOTE | 2020-08-20 16:57 | NUR ---
ELIZABETH RN AT [facility], CALLED FOR REPORT. REPORT GIVEN. DENIES FURTHER QUESTIONS OR NEEDS. AMBULANCE EN ROUTE TO [facility] TO CELLAR HAND PATIENT.
--- NOTE | 2020-08-20 17:01 | NUR ---
DC EDUCATION PROVIDED BOTH WRITTEN AND VERBAL TO PATIENT AND AT BEDSIDE. BOTH VERBALIZE UNDERSTANDING. SIGNED PAPERWORK D/T PATIENT CONFUSED. RENTERIA LEFT IN PLACE FOR DC PER ORDER. NO IV TO REMOVED. WAITING AMBULANCE FOR PATIENT DC.
--- NOTE | 2020-08-20 21:40 | MORECARE ---
CASE MANAGEMENT DISCHARGE SUMMARY PATIENT: SPIKE KAYE UNIT: [id number] ADM DATE: 08/16/20 AGE: 84 : 37 SEX: M ROOM/BED: D.2218 AUTHOR: FINA,DOC PHYSICIAN: REFERRING PHYSICIAN: JOJO MITCHELL MD DATE OF SERVICE: 08/20/20 Case Management Discharge Planning Summary COMMENTS ENTERED DATE: 08/20/20 15:30 CT COMMENT TYPE: Discharge Planning REVIEWER: Elidia Hanna patient will be discharging to [facility] today He will need to transport via EMS ENTERED DATE: 08/20/20 8:22 CT COMMENT TYPE: Discharge Planning REVIEWER: Elidia Hanna late entry 08/19/20 @ 12:30 CM met with patient, and daughter to complete initial dc planning assessment. CM educated patient on the CM role and verbal consent given by patient to complete assessment. Patient lives at home with his where about 2 1/2 weeks ago he was working in his garden. CM discussed availability of home health, rehab services, and medical equipment. At discharge patient plans to go to [facility] inpatient rehab prior to returning home and feels this is a safe discharge. He has a walker at home and a wheelchair, but does not use the wheelchair. He is current with [facility] . He is a patient of Dr Marin and uses the [facility] pharmacy by [place]. IMM served and BHUMI also signed. Patient denied known discharge needs at this time. CM will continue to follow and will assist as needed with dc plans/needs. DCP REVIEW SUMMARY ANTICIPATED D/C DATE: EXPECTED LOS : CASE STATUS: DCP Initiated INITIAL REVIEW: 08/17/2020 INITIAL REVIEWER: Elidia Hanna FINAL DISCHARGE DISPOSITION: : FINAL REVIEWER: FINAL REVIEW DATE: DCP Focus Questions & Answers QUESTION: ANSWER : PATIENT: SPIKE KAYE ENCOUNTER: [id number] MEDICAL RECORD#: [id number] ADMISSION DATE: 08/16/2020 DISCHARGE DATE: 08/20/2020 ATTENDING MD: JOJO JASSO : AGE: 84 MARITAL STATUS: M DC PLAN ID: [id number] FACILITY: [facility] PRINTED ON: 08/20/20 21:39 CT All edits/amendments must be made on the electronic document DICTATION DATE: 08/20/202138 TALENT ACQUISITION ASSOCIATE: KELLIE 08/20/202138 RPT#: [id number] DC DATE:08/20/20 STATUS: DIS IN [facility] [address] [place] [address] END OF REPORT
--- NOTE | 2020-08-21 10:46 | MORECARE ---
CASE MANAGEMENT DISCHARGE SUMMARY PATIENT: SPIKE KAYE UNIT: [id number] ADM DATE: 08/16/20 AGE: 84 : 37 SEX: M ROOM/BED: D.2218 AUTHOR: FINA,DOC PHYSICIAN: REFERRING PHYSICIAN: JOJO MITCHELL MD DATE OF SERVICE: 08/21/20 Case Management Discharge Planning Summary COMMENTS ENTERED DATE: 08/20/20 15:30 CT COMMENT TYPE: Discharge Planning REVIEWER: Elidia Hanna patient will be discharging to [facility] today He will need to transport via EMS ENTERED DATE: 08/20/20 8:22 CT COMMENT TYPE: Discharge Planning REVIEWER: Elidia Hanna late entry 08/19/20 @ 12:30 CM met with patient, and daughter to complete initial dc planning assessment. CM educated patient on the CM role and verbal consent given by patient to complete assessment. Patient lives at home with his where about 2 1/2 weeks ago he was working in his garden. CM discussed availability of home health, rehab services, and medical equipment. At discharge patient plans to go to [facility] inpatient rehab prior to returning home and feels this is a safe discharge. He has a walker at home and a wheelchair, but does not use the wheelchair. He is current with [facility] . He is a patient of Dr Marin and uses the [facility] pharmacy by [facility]. IMM served and BHUMI also signed. Patient denied known discharge needs at this time. CM will continue to follow and will assist as needed with dc plans/needs. DCP REVIEW SUMMARY ANTICIPATED D/C DATE: EXPECTED LOS : 0 CASE STATUS: DCP Complete INITIAL REVIEW: 08/17/2020 INITIAL REVIEWER: Elidia Hanna FINAL DISCHARGE DISPOSITION: 62 : Discharged/Trans to Rehab Facility Including Distinct Units of a Hospital FINAL REVIEWER: Elidia Hanna FINAL REVIEW DATE: 08/21/2020 DCP Focus Questions & Answers QUESTION: ANSWER : PATIENT: SPIKE KAYE ENCOUNTER: [id number] MEDICAL RECORD#: [id number] ADMISSION DATE: 08/16/2020 DISCHARGE DATE: 08/20/2020 ATTENDING MD: JOJO JASSO : AGE: 84 MARITAL STATUS: M DC PLAN ID: [id number] FACILITY: [facility] PRINTED ON: 08/21/20 10:46 CT All edits/amendments must be made on the electronic document DICTATION DATE: 08/21/20 1046 [employer] CONVERTER: KELLIE 08/21/20 1046 RPT#: [id number] DC DATE:08/20/20 STATUS: DIS IN [facility] [address] [place] [address] END OF REPORT
== END 2020-08-20 21:28 | DRG 872 ==
LOC: D.ER 19:17 → D.MS 23:35 → D.EDHOLD 23:36 → D.MS 23:37
PROVIDERS: Emergency Medicine; Family Medicine; ADMIT Family Medicine; ATTEND Family Medicine
DX: A41.9 Sepsis, unspecified organism (principal); N39.0 Urinary tract infection, site not specified; N41.9 Inflammatory disease of prostate, unspecified; E11.65 Type 2 diabetes mellitus with hyperglycemia; F03.90 Unspecified dementia, unspecified severity, without behavioral disturbance, psychotic disturbance, mood disturbance, and anxiety; R33.9 Retention of urine, unspecified; I10 Essential (primary) hypertension; J44.9 Chronic obstructive pulmonary disease, unspecified; N40.0 Benign prostatic hyperplasia without lower urinary tract symptoms